=== PATIENT | female | born 1965 | race Caucasian/White ===

== ENCOUNTER 2016-10-09 15:21 | Inpatient (IN) | payer BC, OTHER ==
[~2016-10-09] VITALS: Ht 172.7 cm; Wt 93.8 kg
[2016-10-09] VITALS (7 sets, daily range): BP systolic 82–131; BP diastolic 51–73
[~2016-10-09 15:21] MED LIST: AMIODARONE HCL200 MG PO; ANUSOL1 SUPP PR; ASCORBIC ACID100 MG PO; BUMETANIDE1 MG PO; BUMETANIDE2 MG PO; BUMEX1 MG PO; BUMEX2 MG PO; C COMPLEX500 MG PO; COLACE100 MG PO; CORDARONE200 MG GT; CORDARONE200 MG PO; COREG3.125 M1 PO; CORGARD40 MG PO; COUMADIN7.5 MG PO; Cardizem CD,Cartia X PO; Coreg PO; DOCUSATE SODIU100 MG PO; ENDOCET 5-3251 EACH PO; Ecotrin PO; FEOSOL325 MG PO; FERROUS SULFAT325 MG PO; GLIPIZIDE5 MG PO; GLUCOPHAGE1000 MG PO; GLUCOTROL5 MG PO; GLYBURIDE5 MG PO; HEPARIN SO5000 UNITS SC; HYDROXYZINE HCL10 MG PO; KETOCONAZOLE60 GM TP; LANTUS 10100 UNITS/ IM/SC; LANTUS 3 M100 UNITS1 SC; LEVOTHYROXINE125 MCG PO; LIPITOR20 MG PO; METOLAZONE2.5 MG PO; MIDODRINE HCL5 MG PO; MORPHINE CON20 MG/M1 PO; MULTI VITAMIN1 EACH PO; Micro-K,K-Tab,K-Dur, PO; NITROSTAT0.4 MG SL; NOVOLOG 10100 UNITS/ SC; NOVOLOG PE100 UNITS/ SC; OXYCONTIN10 MG PO; PLAVIX75 MG PO; PREVACID30 MG PO; PROTONIX40 MG PO; RANEXA1000 MG PO; RENA-VITE RX T1 EACH PO; RENVELA800 MG GT; ROXICODONE5 MG PO; SENOKOT S,PE1 TABLET PO; SYNTHROID112 MCG PO; SYNTHROID150 MCG GT; SYNTHROID50 MCG PO; ULTRAM50 MG PO; VITAMIN B-12250 MCG PO; VITAMIN B12-FO1 EACH PO; VITAMIN D-32000 UNI1 PO; VITAMIN D2000 UNIT PO; VITAMIN D31000 UNIT PO; XARELTO15 MG PO; Xarelto PO; ZANTAC150 MG GT; ZOLOFT25 MG PO; [UNRECOGNIZED DRUG - REMARK]
[2016-10-09 16:24] LABS: CREATININE 8.2 mg/dL (0.6-1.3); POTASSIUM 4.8 mEq/L (3.7-5.4)
[2016-10-09 16:36] LABS: BASE EXCESS -15.1 mEq/L (-3 to +3); BICARBONATE 10.7 mEq/L (22-26); CARBOXY HGB 1.6 % (0-5); METHEMOGLOBIN 0.9 % (0-1.5); PCO2 25 mm Hg (35-45); PO2 83 mm Hg (80-100)
[2016-10-09 16:37] LABS: COMMENTS - BLOOD GASES A+C+; FI02 21 %; SITE RR; pH 7.24 (7.35-7.45)
[2016-10-09 16:40] LABS: HEMATOCRIT 34.7 % (36.0-46.0); MCH 32.6 PG (29.0-34.0); MCHC 32.6 G/DL (30.0-36.0); MEAN PLAT.VOLUME 12.4 uM^3 (9.5-12.4); PLATELET COUNT 127 K/uL (156-360); RBC DIS.WIDTH-SD 49.8 % (39-53); RED BLOOD COUNT 3.47 M/uL (3.80-5.20); WHITE BLOOD COUNT 13.6 K/uL (4.1-10.2)
[2016-10-09 16:44] LABS: EOSINOPHIL (%) 0 % (0-5); IMMATURE GRANULOCYTE COUNT 1.4 K/uL; LYMPHOCYTE COUNT 0.5 K/uL (1.0-2.8); MONOCYTE COUNT 0.3 K/uL (0-0.8); NEUTROPHIL (%) 93.5 % (45-76); NEUTROPHIL COUNT 12.7 K/uL (1.8-6.4)
[2016-10-09 16:48] LABS: GLUCOSE 75 mg/dL (70-99)
[2016-10-09 16:49] LABS: ANION GAP 34 MEQ/L (2-14)
[2016-10-09 16:50] LABS: TOTAL BILIRUBIN 2.3 mg/dL (0.0-1.0)
[2016-10-09 16:52] LABS: ALKALINE PHOSPHATASE 74 IU/L (3-129); GFR ESTIMATE (CALCULATED) 5 mL/min/
[2016-10-09 16:55] LABS: CREATINE KINASE 104 IU/L (1-294); LIPASE 24 U/L (1.0-51.0)
[2016-10-09 17:00] LABS: INTERNAL CONTROL VALID? YES; MONOSPOT (MONONUCLEOSIS SEROL) NEGATIVE; UREA NITROGEN (BUN) 109 mg/dL (9-23)
[2016-10-09 17:01] LABS: TROP-I INTERPRETATION INDETERMINATE; TROPONIN-I 0.38 ng/mL (0.0-0.30)
[2016-10-09 17:02] LABS: CK-MB 3.6 ng/mL (0.0-4.9)
[2016-10-09 17:04] LABS: CHLORIDE 87 MEQ/L (99-109); POTASSIUM 5.1 MEQ/L (3.7-5.4); SODIUM 131 MEQ/L (136-147)
[2016-10-09 17:07] LABS: TOTAL CK 104 IU/L (1-294)
[2016-10-09] MEDS ORDERED: TRADJENTA5 MG PO (17:26)
[2016-10-09] MEDS ORDERED: CRESTOR20 MG GT (17:26)
[2016-10-09] MEDS ORDERED: TRAMADOL HCL50 MG PO (17:27)
[2016-10-09] MEDS ORDERED: MIDODRINE HCL5 MG GT (17:27)
[2016-10-09] MEDS ORDERED: ZOFRAN4 MG PO (17:29)
[2016-10-09] MEDS ORDERED: LIDOPRIL 2.5%-1 EACH TP (17:29)
[2016-10-09 17:34] LABS: INFLUENZA A VIRAL ANTIGEN POSITIVE; INFLUENZA B VIRAL ANTIGEN NEGATIVE
[2016-10-09 19:59] LABS: CARBOXY HGB 1.7 % (0-5); METHEMOGLOBIN 1.1 % (0-1.5); PCO2 28 mm Hg (35-45); PO2 95 mm Hg (80-100); pH < 6.91 (7.35-7.45)
[2016-10-09 20:00] LABS: DEVICE NC; O2 FLOW 5 L/MIN; SITE RB; TOTAL RESP RATE 12 resp/min
[2016-10-09 20:34] LABS: TROP-I INTERPRETATION INDETERMINATE; TROPONIN-I 0.54 ng/mL (0.0-0.30)
[2016-10-09 20:40] LABS: CHLORIDE 96 mEq/L (99-109); POTASSIUM 4.9 mEq/L (3.7-5.4); SODIUM 131 mEq/L (136-147)
[2016-10-09 20:41] LABS: MAGNESIUM 2.4 mg/dL (1.3-2.7)
[2016-10-09 20:44] LABS: ANION GAP 32 MEQ/L (2-14)
[2016-10-09 20:45] LABS: TOTAL BILIRUBIN 2.2 mg/dL (0.0-1.0)
[2016-10-09 20:46] LABS: ALKALINE PHOSPHATASE 65 IU/L (3-129)
[2016-10-09 20:47] LABS: GFR ESTIMATE (CALCULATED) 6 mL/min/
[2016-10-09 20:48] LABS: GLUCOSE 162 mg/dL (70-99); UREA NITROGEN (BUN) 100 mg/dL (9-23)
[2016-10-09 21:09] LABS: HEMATOLOGY COMMENT 1 SMEAR COMPATIBLE
[2016-10-09 21:10] LABS: HEMATOCRIT 42.8 % (36.0-46.0); MCH 31.1 PG (29.0-34.0); MCHC 29.7 G/DL (30.0-36.0); PLATELET COUNT 97 K/uL (156-360); RBC DIS.WIDTH-CV 14.6 % (11.8-14.6); RBC DIS.WIDTH-SD 55.9 % (39-53); RED BLOOD COUNT 4.09 M/uL (3.80-5.20); WHITE BLOOD COUNT 14.9 K/uL (4.1-10.2)
[2016-10-09 22:01] LABS: BASE EXCESS -9.1 mEq/L (-3 to +3); BICARBONATE 16.9 mEq/L (22-26); CARBOXY HGB 1.2 % (0-5); METHEMOGLOBIN 1.3 % (0-1.5); PCO2 36 mm Hg (35-45); PO2 489 mm Hg (80-100); pH 7.28 (7.35-7.45)
[2016-10-09 22:02] LABS: DEVICE PB840; FI02 100 %; MECHANICAL RATE 14 resp/min; MODE SIMV; PEEP 5 CM/H20; PRES. SUPPORT 10 CM/H2O; SITE A-LINE; TIDAL VOLUME 400 ML; TOTAL RESP RATE 24 resp/min
[2016-10-09 22:12] LABS: METH RESISTANT S AUREUS PCR NEGATIVE (NEGATIVE)
[2016-10-09 22:15] LABS: PROBE CHECK PASS; SPECIMEN PROCESSING CONTROL PASS
[2016-10-09 22:17] LABS: MCV 104.6 FL (83-99)
[2016-10-09 23:04] LABS: BASE EXCESS -15.5 mEq/L (-3 to +3); METHEMOGLOBIN 1.7 % (0-1.5)
[2016-10-09 23:05] LABS: BICARBONATE 13.3 mEq/L (22-26); DEVICE PB840; FI02 100 %; MECHANICAL RATE 20 resp/min; MODE AC; PCO2 42 mm Hg (35-45); PEEP 5 CM/H20; PO2 302 mm Hg (80-100); TIDAL VOLUME 450 ML; TOTAL RESP RATE 20 resp/min; pH 7.11 (7.35-7.45)
[2016-10-09 23:06] LABS: SITE A-LINE
[2016-10-09 23:53] LABS: HEMATOCRIT 33.7 % (36.0-46.0); MCH 32.6 PG (29.0-34.0); MCHC 32.3 G/DL (30.0-36.0); MCV 100.9 FL (83-99); MEAN PLAT.VOLUME 11.4 uM^3 (9.5-12.4); PLATELET COUNT 118 K/uL (156-360); RBC DIS.WIDTH-SD 50.3 % (39-53); RED BLOOD COUNT 3.34 M/uL (3.80-5.20); WHITE BLOOD COUNT 12.3 K/uL (4.1-10.2)
[2016-10-10] VITALS (8 sets, daily range): BP systolic 96–150; BP diastolic 54–80
[2016-10-10 00:01] LABS: CHLORIDE 91 mEq/L (99-109)
[2016-10-10 00:03] LABS: GLUCOSE 124 mg/dL (70-99)
[2016-10-10 00:04] LABS: ANION GAP 42 MEQ/L (2-14); PROTHROMBIN TIME 32.9 (9.2-11.2)
[2016-10-10 00:07] LABS: GFR ESTIMATE (CALCULATED) 6 mL/min/
[2016-10-10 00:30] LABS: MAGNESIUM 1.9 mg/dL (1.3-2.7); SODIUM 149 mEq/L (136-147)
[2016-10-10 00:34] LABS: INTER. NORMALIZED RATIO 3.1
[2016-10-10 00:35] LABS: UREA NITROGEN (BUN) 104 mg/dL (9-23)
[2016-10-10 02:15] LABS: BASE EXCESS -7.9 mEq/L (-3 to +3); BICARBONATE 17.6 mEq/L (22-26); CARBOXY HGB 2.3 % (0-5); COMMENTS - BLOOD GASES C+; DEVICE PB840; FI02 80 %; MECHANICAL RATE 24 resp/min; METHEMOGLOBIN 1.3 % (0-1.5); MODE ACVC; PCO2 35 mm Hg (35-45); PEEP 5 CM/H20; PO2 240 mm Hg (80-100); TIDAL VOLUME 450 ML; TOTAL RESP RATE 24 resp/min; pH 7.31 (7.35-7.45)
[2016-10-10 02:16] LABS: SITE A-LINE
[2016-10-10 05:22] LABS: BASE EXCESS -4.9 mEq/L (-3 to +3); BICARBONATE 19.5 mEq/L (22-26); CARBOXY HGB 1.2 % (0-5); METHEMOGLOBIN 1.6 % (0-1.5); PCO2 33 mm Hg (35-45); pH 7.38 (7.35-7.45)
[2016-10-10 05:23] LABS: PEEP 5 CM/H20; PO2 174 mm Hg (80-100); TIDAL VOLUME 450 ML
[2016-10-10 05:24] LABS: COMMENTS - BLOOD GASES C+; DEVICE PB840; FI02 60 %; MECHANICAL RATE 24 resp/min; MODE ACVC; SITE A-LINE; TOTAL RESP RATE 28 resp/min
[2016-10-10 05:29] LABS: HEMATOCRIT 33.9 % (36.0-46.0); MCH 32.7 PG (29.0-34.0); MCV 99.1 FL (83-99); MEAN PLAT.VOLUME 11.7 uM^3 (9.5-12.4); PLATELET COUNT 121 K/uL (156-360); RBC DIS.WIDTH-SD 48.4 % (39-53); RED BLOOD COUNT 3.42 M/uL (3.80-5.20); WHITE BLOOD COUNT 12.6 K/uL (4.1-10.2)
[2016-10-10 05:35] LABS: INTER. NORMALIZED RATIO 2.7; PROTHROMBIN TIME 28.3 (9.2-11.2)
[2016-10-10 05:43] LABS: CHLORIDE 91 mEq/L (99-109); SODIUM 149 mEq/L (136-147)
[2016-10-10 05:46] LABS: GLUCOSE 111 mg/dL (70-99)
[2016-10-10 05:47] LABS: ANION GAP 42 MEQ/L (2-14)
[2016-10-10 05:49] LABS: ALKALINE PHOSPHATASE 79 IU/L (3-129); TOTAL BILIRUBIN 2.9 mg/dL (0.0-1.0)
[2016-10-10 05:49] LABS: TROP-I INTERPRETATION POSITIVE; TROPONIN-I 9.58 ng/mL (0.0-0.30)
[2016-10-10 05:50] LABS: GFR ESTIMATE (CALCULATED) 6 mL/min/
[2016-10-10 05:52] LABS: UREA NITROGEN (BUN) 105 mg/dL (9-23)
[2016-10-10 07:33] LABS: POINT-OF-CARE METER ID UU13113702
[2016-10-10 08:01] LABS: ADD MIUA? YES; BILIRUBIN SMALL; BLOOD LARGE; GLUCOSE (STRIP) NEGATIVE; KETONES TRACE; LEUKOCYTES MODERATE; NITRITE NEGATIVE; PROTEIN (STRIP) >=300; SPECIFIC GRAVITY 1.031 (1.000-1.030)
[2016-10-10 08:02] LABS: COLOR AMBER ((YELLOW))
[2016-10-10 08:35] LABS: BACTERIA 2+; CASTS NONE SEEN /LPF; CRYSTALS NONE SEEN; EPITHELIAL CELLS NONE SEEN; MUCUS NONE SEEN; UCUL ADDED? NO; WHITE BLOOD CELLS RARE /HPF (0-5)
[2016-10-10 09:13] LABS: BASE EXCESS -0.8 mEq/L (-3 to +3); CARBOXY HGB 1.6 % (0-5); METHEMOGLOBIN 1.8 % (0-1.5); pH 7.38 (7.35-7.45)
[2016-10-10 09:15] LABS: BICARBONATE 24.3 mEq/L (22-26); COMMENTS - BLOOD GASES VENOUS; DEVICE VENT; FI02 100 %; MECHANICAL RATE 24 resp/min; MODE AC; PCO2 41 mm Hg (35-45); PEEP 8 CM/H20; PO2 56 mm Hg (80-100); SITE CENTRAL LINE; TIDAL VOLUME 450 ML; TOTAL RESP RATE 25 resp/min
[2016-10-10 10:15] LABS: HBSG INDEX 0.18
[2016-10-10 10:16] LABS: HPCA INDEX 0.09
[2016-10-10 10:17] LABS: ANTI-HEPATITIS A VIRUS (IGM) Nonreactive; HAV INDEX 0.12
[2016-10-10 10:18] LABS: ANTI-HEPATITIS B CORE (IGM) Nonreactive; HBC IgM INDEX 0.06
[2016-10-10 12:25] LABS: TROP-I INTERPRETATION POSITIVE
[2016-10-10 12:30] LABS: TROPONIN-I 15.99 ng/mL (0.0-0.30)
[2016-10-10 12:39] LABS: ANION GAP 37 MEQ/L (2-14); CHLORIDE 90 MEQ/L (99-109); GFR ESTIMATE (CALCULATED) 7 mL/min/; GLUCOSE 155 mg/dL (70-99); POTASSIUM 3.4 MEQ/L (3.7-5.4); SAMPLE HEMOLYSIS CHECK 0; SAMPLE ICTERIC CHECK 1; SAMPLE LIPEMIA CHECK 0; SODIUM 149 MEQ/L (136-147); UREA NITROGEN (BUN) 99 mg/dL (9-23)
[2016-10-10 18:47] LABS: TROP-I INTERPRETATION POSITIVE
[2016-10-10 18:51] LABS: CHLORIDE 93 MEQ/L (99-109); GFR ESTIMATE (CALCULATED) 11 mL/min/; GLUCOSE 208 mg/dL (70-99); MAGNESIUM 2.1 mg/dl (1.3-2.7); POTASSIUM 3.7 MEQ/L (3.7-5.4); SODIUM 144 MEQ/L (136-147); TOTAL BILIRUBIN 3.4 MG/DL (0.0-1.0); UREA NITROGEN (BUN) 75 mg/dL (9-23)
[2016-10-10 18:53] LABS: TROPONIN-I 15.23 ng/mL (0.0-0.30)
[2016-10-10 18:59] LABS: ALKALINE PHOSPHATASE 92 IU/L (3-129); ANION GAP 26 MEQ/L (2-14); SAMPLE HEMOLYSIS CHECK 0; SAMPLE ICTERIC CHECK 1; SAMPLE LIPEMIA CHECK 0
[2016-10-10 22:08] LABS: EOSINOPHIL (%) 0 % (0-5); HEMATOLOGY COMMENT 1 SMEAR COMPATIBLE; IMMATURE GRANULOCYTE (%) 2.6 % (0.0-0.7); IMMATURE GRANULOCYTE COUNT 0.2 K/uL; LYMPHOCYTE COUNT 0.4 K/uL (1.0-2.8); MCH 32.3 PG (29.0-34.0); MCHC 34.1 G/DL (30.0-36.0); MEAN PLAT.VOLUME 11.9 uM^3 (9.5-12.4); MONOCYTE COUNT 0.1 K/uL (0-0.8); NEUTROPHIL (%) 91.1 % (45-76); NEUTROPHIL COUNT 6.7 K/uL (1.8-6.4); NRBC (%) 1.4 /100 WBC (0-0); PLATELET COUNT 86 K/uL (156-360); RBC DIS.WIDTH-SD 48.2 % (39-53); RED BLOOD COUNT 3.37 M/uL (3.80-5.20); USER ID LYM
[2016-10-10 22:15] LABS: WHITE BLOOD COUNT 7.4 K/uL (4.1-10.2)
[2016-10-11] VITALS: BP 114/61
[2016-10-11 00:33] LABS: POINT-OF-CARE METER ID UU14174217
[2016-10-11 02:00] LABS: HEMATOCRIT 31.2 % (36.0-46.0); MCH 31.8 PG (29.0-34.0); MCHC 33.3 G/DL (30.0-36.0); MCV 95.4 FL (83-99); MEAN PLAT.VOLUME 11.6 uM^3 (9.5-12.4); NRBC (%) 1.7 /100 WBC (0-0); PLATELET COUNT 91 K/uL (156-360); RBC DIS.WIDTH-CV 13.9 % (11.8-14.6); RBC DIS.WIDTH-SD 48.1 % (39-53); RED BLOOD COUNT 3.27 M/uL (3.80-5.20); WHITE BLOOD COUNT 6.2 K/uL (4.1-10.2)
[2016-10-11 02:09] LABS: EOSINOPHIL (%) 0 % (0-5); IMMATURE GRANULOCYTE (%) 1.1 % (0.0-0.7); IMMATURE GRANULOCYTE COUNT 0.1 K/uL; LYMPHOCYTE COUNT 0.4 K/uL (1.0-2.8); MONOCYTE (%) 0.5 % (3-12); NEUTROPHIL COUNT 5.6 K/uL (1.8-6.4)
[2016-10-11 02:29] LABS: DIGOXIN 3.1 ng/mL (0.8-2.0)
[2016-10-11 03:09] LABS: CHLORIDE 94 MEQ/L (99-109); GFR ESTIMATE (CALCULATED) 14 mL/min/; GLUCOSE 289 mg/dL (70-99); MAGNESIUM 2.1 mg/dl (1.3-2.7); SAMPLE HEMOLYSIS CHECK 0; SAMPLE ICTERIC CHECK 1; SAMPLE LIPEMIA CHECK 0; SODIUM 140 MEQ/L (136-147); UREA NITROGEN (BUN) 55 mg/dL (9-23)
[2016-10-11 03:10] LABS: ANION GAP 20 MEQ/L (2-14)
[2016-10-11 05:01] LABS: BASE EXCESS 4.9 mEq/L (-3 to +3); BICARBONATE 27.4 mEq/L (22-26); CARBOXY HGB 1.3 % (0-5); METHEMOGLOBIN 1.4 % (0-1.5)
[2016-10-11 05:02] LABS: COMMENTS - BLOOD GASES C+; DEVICE VENTILATOR; FI02 40 %; MECHANICAL RATE 24 resp/min; MODE AC; PCO2 32 mm Hg (35-45); PEEP 5 CM/H20; PO2 117 mm Hg (80-100); SITE A-LINE; TIDAL VOLUME 450 ML; TOTAL RESP RATE 24 resp/min; pH 7.54 (7.35-7.45)
[2016-10-11 05:39] LABS: TROP-I INTERPRETATION POSITIVE
[2016-10-11 05:53] LABS: INTER. NORMALIZED RATIO 2.9
[2016-10-11 06:00] VITALS: BP 110/67
[2016-10-11 06:08] LABS: POINT-OF-CARE METER ID UU14174217
[2016-10-11 06:40] LABS: ALKALINE PHOSPHATASE 86 IU/L (3-129); ANION GAP 18 MEQ/L (2-14); CHLORIDE 94 MEQ/L (99-109); GLUCOSE 277 mg/dL (70-99); MAGNESIUM 2.2 mg/dl (1.3-2.7); POTASSIUM 3.8 MEQ/L (3.7-5.4); SAMPLE HEMOLYSIS CHECK 0; SAMPLE ICTERIC CHECK 1; SAMPLE LIPEMIA CHECK 0; SODIUM 138 MEQ/L (136-147); TOTAL BILIRUBIN 3.9 MG/DL (0.0-1.0); UREA NITROGEN (BUN) 47 mg/dL (9-23)
[2016-10-11 06:44] LABS: GFR ESTIMATE (CALCULATED) 17 mL/min/
[2016-10-11 09:00] VITALS: BP 112/62
[2016-10-11 09:04] LABS: HEMATOCRIT 31.3 % (36.0-46.0); MCH 32.8 PG (29.0-34.0); MCHC 33.9 G/DL (30.0-36.0); MCV 96.9 FL (83-99); PLATELET COUNT 88 K/uL (156-360); RBC DIS.WIDTH-CV 14.1 % (11.8-14.6); RBC DIS.WIDTH-SD 49.9 % (39-53); RED BLOOD COUNT 3.23 M/uL (3.80-5.20); WHITE BLOOD COUNT 7.5 K/uL (4.1-10.2)
[2016-10-11 11:49] LABS: POINT-OF-CARE METER ID UU14174217
[2016-10-11 13:18] LABS: ANION GAP 13 MEQ/L (2-14); CHLORIDE 100 MEQ/L (99-109); GFR ESTIMATE (CALCULATED) 25 mL/min/; GLUCOSE 231 mg/dL (70-99); MAGNESIUM 2.2 mg/dl (1.3-2.7); POTASSIUM 4.1 MEQ/L (3.7-5.4); SAMPLE HEMOLYSIS CHECK 0; SAMPLE ICTERIC CHECK 1; SAMPLE LIPEMIA CHECK 0; SODIUM 137 MEQ/L (136-147); UREA NITROGEN (BUN) 35 mg/dL (9-23)
[2016-10-11 13:41] LABS: TROP-I INTERPRETATION POSITIVE
[2016-10-11 13:53] LABS: TROPONIN-I 7.14 ng/mL (0.0-0.30)
[2016-10-11 18:32] LABS: TROP-I INTERPRETATION POSITIVE
[2016-10-11 18:36] LABS: TROPONIN-I 4.04 ng/mL (0.0-0.30)
[2016-10-11 18:51] LABS: ALKALINE PHOSPHATASE 85 IU/L (3-129); ANION GAP 17 MEQ/L (2-14); CHLORIDE 96 MEQ/L (99-109); GFR ESTIMATE (CALCULATED) 26 mL/min/; GLUCOSE 227 mg/dL (70-99); MAGNESIUM 2.1 mg/dl (1.3-2.7); POTASSIUM 4.1 MEQ/L (3.7-5.4); SAMPLE HEMOLYSIS CHECK 0; SAMPLE ICTERIC CHECK 1; SAMPLE LIPEMIA CHECK 0; SODIUM 136 MEQ/L (136-147); TOTAL BILIRUBIN 3.8 MG/DL (0.0-1.0); UREA NITROGEN (BUN) 31 mg/dL (9-23)
[2016-10-11 21:56] LABS: BASE EXCESS 0.5 mEq/L (-3 to +3); BICARBONATE 24.5 mEq/L (22-26); CARBOXY HGB 1.4 % (0-5); METHEMOGLOBIN 1.7 % (0-1.5); PCO2 36 mm Hg (35-45); PO2 96 mm Hg (80-100)
[2016-10-11 21:57] LABS: DEVICE VENT; FI02 30 %; MECHANICAL RATE 18 resp/min; MODE AC; PEEP 5 CM/H20; SITE ALINE; TIDAL VOLUME 450 ML; pH 7.44 (7.35-7.45)
[2016-10-12 00:37] LABS: POINT-OF-CARE METER ID UU14162636
[2016-10-12 00:53] LABS: MAGNESIUM 2.1 mg/dL (1.3-2.7); POTASSIUM 4.4 mEq/L (3.7-5.4); SODIUM 136 mEq/L (136-147)
[2016-10-12 00:55] LABS: GLUCOSE 194 mg/dL (70-99)
[2016-10-12 00:56] LABS: ANION GAP 14 MEQ/L (2-14)
[2016-10-12 00:59] LABS: GFR ESTIMATE (CALCULATED) 31 mL/min/; UREA NITROGEN (BUN) 28 mg/dL (9-23)
[2016-10-12 01:13] LABS: CHLORIDE 101 mEq/L (99-109)
[2016-10-12 05:00] VITALS: BP 112/62
[2016-10-12 06:50] LABS: HEMATOCRIT 32.9 % (36.0-46.0); MCH 32.2 PG (29.0-34.0); MCHC 32.8 G/DL (30.0-36.0); MCV 98.2 FL (83-99); MEAN PLAT.VOLUME 12.4 uM^3 (9.5-12.4); PLATELET COUNT 74 K/uL (156-360); RBC DIS.WIDTH-CV 14.4 % (11.8-14.6); RBC DIS.WIDTH-SD 51.9 % (39-53); RED BLOOD COUNT 3.35 M/uL (3.80-5.20); WHITE BLOOD COUNT 8.6 K/uL (4.1-10.2)
[2016-10-12 07:03] LABS: PROTHROMBIN TIME 20.8 (9.2-11.2); PTT 83.7 (25-32)
[2016-10-12 07:15] LABS: TROP-I INTERPRETATION POSITIVE
[2016-10-12 07:25] LABS: ALKALINE PHOSPHATASE 97 IU/L (3-129); ANION GAP 14 MEQ/L (2-14); CHLORIDE 102 MEQ/L (99-109); GFR ESTIMATE (CALCULATED) 36 mL/min/; GLUCOSE 186 mg/dL (70-99); MAGNESIUM 2.3 mg/dl (1.3-2.7); POTASSIUM 4.6 MEQ/L (3.7-5.4); SAMPLE HEMOLYSIS CHECK 0; SAMPLE ICTERIC CHECK 1; SAMPLE LIPEMIA CHECK 0; SODIUM 139 MEQ/L (136-147); TOTAL BILIRUBIN 3.3 MG/DL (0.0-1.0); TROPONIN-I 3.38 ng/mL (0.0-0.30); UREA NITROGEN (BUN) 27 mg/dL (9-23)
[2016-10-12 12:01] LABS: POINT-OF-CARE METER ID UU13113731
[2016-10-12 13:21] LABS: ANION GAP 18 MEQ/L (2-14); CHLORIDE 99 MEQ/L (99-109); GFR ESTIMATE (CALCULATED) 42 mL/min/; GLUCOSE 177 mg/dL (70-99); MAGNESIUM 2.3 mg/dl (1.3-2.7); POTASSIUM 4.6 MEQ/L (3.7-5.4); SAMPLE HEMOLYSIS CHECK 0; SAMPLE ICTERIC CHECK 0; SAMPLE LIPEMIA CHECK 0; SODIUM 139 MEQ/L (136-147); UREA NITROGEN (BUN) 25 mg/dL (9-23)
[2016-10-12 17:26] LABS: POINT-OF-CARE METER ID UU13113731
[2016-10-12 19:54] LABS: HEMATOLOGY COMMENT 1 SMEAR COMPATIBLE
[2016-10-12 19:55] LABS: HEMATOCRIT 33.2 % (36.0-46.0); MCH 32.7 PG (29.0-34.0); MCHC 33.1 G/DL (30.0-36.0); MCV 98.8 FL (83-99); MEAN PLAT.VOLUME 13.1 uM^3 (9.5-12.4); RBC DIS.WIDTH-CV 14.5 % (11.8-14.6); RBC DIS.WIDTH-SD 52.1 % (39-53); RED BLOOD COUNT 3.36 M/uL (3.80-5.20); WHITE BLOOD COUNT 10.7 K/uL (4.1-10.2)
[2016-10-12 20:02] LABS: PLATELET COUNT 46 K/uL (156-360)
[2016-10-12 21:12] LABS: ALKALINE PHOSPHATASE 103 IU/L (3-129); ANION GAP 13 MEQ/L (2-14); CHLORIDE 103 MEQ/L (99-109); GFR ESTIMATE (CALCULATED) 46 mL/min/; GLUCOSE 175 mg/dL (70-99); MAGNESIUM 2.4 mg/dl (1.3-2.7); POTASSIUM 4.6 MEQ/L (3.7-5.4); SAMPLE HEMOLYSIS CHECK 0; SAMPLE ICTERIC CHECK 0; SAMPLE LIPEMIA CHECK 0; SODIUM 137 MEQ/L (136-147); UREA NITROGEN (BUN) 26 mg/dL (9-23)
[2016-10-12 23:00] VITALS: BP 90/55
[2016-10-12 23:18] LABS: POINT-OF-CARE METER ID UU13113731
[2016-10-13 01:01] LABS: CHLORIDE 104 mEq/L (99-109); POTASSIUM 4.7 mEq/L (3.7-5.4); SODIUM 137 mEq/L (136-147)
[2016-10-13 01:02] LABS: MAGNESIUM 2.2 mg/dL (1.3-2.7)
[2016-10-13 01:19] LABS: GLUCOSE 175 mg/dL (70-99)
[2016-10-13 01:21] LABS: ANION GAP 15 MEQ/L (2-14)
[2016-10-13 01:23] LABS: GFR ESTIMATE (CALCULATED) 50 mL/min/
[2016-10-13 01:24] LABS: UREA NITROGEN (BUN) 24 mg/dL (9-23)
[2016-10-13 05:15] LABS: POINT-OF-CARE METER ID UU14162636
[2016-10-13 06:38] LABS: INTER. NORMALIZED RATIO 1.8; PROTHROMBIN TIME 18.7 (9.2-11.2)
[2016-10-13 07:02] LABS: ALKALINE PHOSPHATASE 106 IU/L (3-129); ANION GAP 15 MEQ/L (2-14); CHLORIDE 103 MEQ/L (99-109); GFR ESTIMATE (CALCULATED) 55 mL/min/; GLUCOSE 176 mg/dL (70-99); HEMATOCRIT 35.1 % (36.0-46.0); MAGNESIUM 2.3 mg/dl (1.3-2.7); MCH 32.1 PG (29.0-34.0); MCHC 32.2 G/DL (30.0-36.0); MCV 99.7 FL (83-99); POTASSIUM 4.5 MEQ/L (3.7-5.4); RBC DIS.WIDTH-CV 14.8 % (11.8-14.6); RBC DIS.WIDTH-SD 53.5 % (39-53); RED BLOOD COUNT 3.52 M/uL (3.80-5.20); SAMPLE HEMOLYSIS CHECK 0; SAMPLE ICTERIC CHECK 0; SAMPLE LIPEMIA CHECK 0; SODIUM 138 MEQ/L (136-147); TOTAL BILIRUBIN 2.9 MG/DL (0.0-1.0); UREA NITROGEN (BUN) 25 mg/dL (9-23)
[2016-10-13 07:03] LABS: WHITE BLOOD COUNT 16.2 K/uL (4.1-10.2)
[2016-10-13 07:45] LABS: PLATELET COUNT 30 K/uL (156-360)
[2016-10-13 12:36] LABS: ANION GAP 14 MEQ/L (2-14); CHLORIDE 102 MEQ/L (99-109); GFR ESTIMATE (CALCULATED) > 59 mL/min/; GLUCOSE 177 mg/dL (70-99); MAGNESIUM 2.4 mg/dl (1.3-2.7); POTASSIUM 4.7 MEQ/L (3.7-5.4); SAMPLE HEMOLYSIS CHECK 0; SAMPLE ICTERIC CHECK 0; SAMPLE LIPEMIA CHECK 0; SODIUM 136 MEQ/L (136-147); UREA NITROGEN (BUN) 24 mg/dL (9-23)
[2016-10-13 13:11] LABS: BASE EXCESS -4.4 mEq/L (-3 to +3); CARBOXY HGB 1.9 % (0-5); METHEMOGLOBIN 1.4 % (0-1.5); PCO2 39 mm Hg (35-45); PO2 93 mm Hg (80-100)
[2016-10-13 13:12] LABS: pH 7.34 (7.35-7.45)
[2016-10-13 13:13] LABS: COMMENTS - BLOOD GASES C+; DEVICE 840; FI02 30 %; MECHANICAL RATE 18 resp/min; MODE A/C; PEEP 5 CM/H20; SITE ALINE; TIDAL VOLUME 450 ML; TOTAL RESP RATE 18 resp/min
[2016-10-13 14:00] VITALS: BP 90/55
[2016-10-13 16:00] VITALS: BP 55/30
[2016-10-13 18:02] LABS: POINT-OF-CARE METER ID UU13113731
[2016-10-13 19:00] VITALS: BP 93/42
[2016-10-13 19:10] LABS: CHLORIDE 103 MEQ/L (99-109); GFR ESTIMATE (CALCULATED) > 59 mL/min/; GLUCOSE 166 mg/dL (70-99); MAGNESIUM 2.3 mg/dl (1.3-2.7); POTASSIUM 4.5 MEQ/L (3.7-5.4); SODIUM 137 MEQ/L (136-147); TOTAL BILIRUBIN 2.6 MG/DL (0.0-1.0); UREA NITROGEN (BUN) 25 mg/dL (9-23)
[2016-10-13 19:18] LABS: ALKALINE PHOSPHATASE 101 IU/L (3-129); ANION GAP 15 MEQ/L (2-14); SAMPLE HEMOLYSIS CHECK 0; SAMPLE ICTERIC CHECK 0; SAMPLE LIPEMIA CHECK 0
[2016-10-13 19:47] LABS: HEMATOCRIT 32.6 % (36.0-46.0); MCHC 32.8 G/DL (30.0-36.0); MCV 100.6 FL (83-99); PLATELET COUNT 22 K/uL (156-360); RBC DIS.WIDTH-CV 14.8 % (11.8-14.6); RED BLOOD COUNT 3.24 M/uL (3.80-5.20); WHITE BLOOD COUNT 20.3 K/uL (4.1-10.2)
[2016-10-13 20:50] LABS: BICARBONATE 21.2 mEq/L (22-26); CARBOXY HGB 1.9 % (0-5); COMMENTS - BLOOD GASES C+; DEVICE VENT; FI02 30 %; METHEMOGLOBIN 1.7 % (0-1.5); MODE SPONT; PCO2 43 mm Hg (35-45); PEEP 5 CM/H20; PO2 103 mm Hg (80-100); PRES. SUPPORT 15 CM/H2O; SITE ALINE; TOTAL RESP RATE 8 resp/min
[2016-10-14 00:22] LABS: POINT-OF-CARE METER ID UU13113731
[2016-10-14 01:34] LABS: CHLORIDE 104 mEq/L (99-109); POTASSIUM 4.8 mEq/L (3.7-5.4); SODIUM 138 mEq/L (136-147)
[2016-10-14 01:35] LABS: MAGNESIUM 2.2 mg/dL (1.3-2.7)
[2016-10-14 01:36] LABS: GLUCOSE 166 mg/dL (70-99)
[2016-10-14 01:37] LABS: ANION GAP 16 MEQ/L (2-14)
[2016-10-14 01:40] LABS: GFR ESTIMATE (CALCULATED) 55 mL/min/
[2016-10-14 01:41] LABS: UREA NITROGEN (BUN) 23 mg/dL (9-23)
[2016-10-14 01:46] LABS: TROP-I INTERPRETATION POSITIVE
[2016-10-14 01:47] LABS: TROPONIN-I 1.87 ng/mL (0.0-0.30)
[2016-10-14 02:00] VITALS: BP 108/52
[2016-10-14 06:39] LABS: PTT 88.1 (25-32)
[2016-10-14 07:21] LABS: HEMATOCRIT 29.7 % (36.0-46.0); MCH 33.2 PG (29.0-34.0); MCHC 32.7 G/DL (30.0-36.0); MCV 101.7 FL (83-99); RBC DIS.WIDTH-CV 15.1 % (11.8-14.6); RBC DIS.WIDTH-SD 54.8 % (39-53); RED BLOOD COUNT 2.92 M/uL (3.80-5.20)
[2016-10-14 07:23] LABS: PLATELET COUNT 19 K/uL (156-360)
[2016-10-14 08:29] LABS: ALKALINE PHOSPHATASE 94 IU/L (3-129); ANION GAP 15 MEQ/L (2-14); CHLORIDE 104 MEQ/L (99-109); GFR ESTIMATE (CALCULATED) 55 mL/min/; GLUCOSE 196 mg/dL (70-99); MAGNESIUM 2.5 mg/dl (1.3-2.7); POTASSIUM 4.9 MEQ/L (3.7-5.4); SAMPLE HEMOLYSIS CHECK 0; SAMPLE ICTERIC CHECK 0; SAMPLE LIPEMIA CHECK 0; SODIUM 137 MEQ/L (136-147); TOTAL BILIRUBIN 2.5 MG/DL (0.0-1.0); UREA NITROGEN (BUN) 25 mg/dL (9-23)
[2016-10-14 13:24] LABS: ANION GAP 18 MEQ/L (2-14); CHLORIDE 103 MEQ/L (99-109); GFR ESTIMATE (CALCULATED) > 59 mL/min/; GLUCOSE 178 mg/dL (70-99); MAGNESIUM 2.3 mg/dl (1.3-2.7); POTASSIUM 4.5 MEQ/L (3.7-5.4); SAMPLE HEMOLYSIS CHECK 0; SAMPLE ICTERIC CHECK 0; SAMPLE LIPEMIA CHECK 0; SODIUM 137 MEQ/L (136-147); UREA NITROGEN (BUN) 24 mg/dL (9-23)
[2016-10-14 16:17] LABS: Heparin Induced Plt Ab Positive (Negative)
[2016-10-14 18:30] LABS: POINT-OF-CARE METER ID UU14174217
[2016-10-14 19:15] LABS: ALKALINE PHOSPHATASE 79 IU/L (3-129); ANION GAP 14 MEQ/L (2-14); CHLORIDE 105 MEQ/L (99-109); GFR ESTIMATE (CALCULATED) > 59 mL/min/; GLUCOSE 164 mg/dL (70-99); MAGNESIUM 2.4 mg/dl (1.3-2.7); POTASSIUM 4.5 MEQ/L (3.7-5.4); SAMPLE HEMOLYSIS CHECK 0; SAMPLE ICTERIC CHECK 0; SAMPLE LIPEMIA CHECK 0; SODIUM 139 MEQ/L (136-147); UREA NITROGEN (BUN) 22 mg/dL (9-23)
[2016-10-14 20:00] VITALS: BP 89/45
[2016-10-14 20:48] LABS: HEMATOCRIT 27.1 % (36.0-46.0); MCHC 32.1 G/DL (30.0-36.0); MCV 102.7 FL (83-99); RBC DIS.WIDTH-CV 15.3 % (11.8-14.6); RBC DIS.WIDTH-SD 55.5 % (39-53); RED BLOOD COUNT 2.64 M/uL (3.80-5.20); WHITE BLOOD COUNT 13.3 K/uL (4.1-10.2)
[2016-10-14 20:49] LABS: PLATELET COUNT 18 K/uL (156-360)
[2016-10-14 23:49] LABS: POINT-OF-CARE METER ID UU14174217
[2016-10-15 00:54] LABS: CHLORIDE 106 mEq/L (99-109); POTASSIUM 4.5 mEq/L (3.7-5.4); SODIUM 137 mEq/L (136-147)
[2016-10-15 00:55] LABS: MAGNESIUM 2.4 mg/dL (1.3-2.7)
[2016-10-15 01:01] LABS: GLUCOSE 163 mg/dL (70-99)
[2016-10-15 01:02] LABS: ANION GAP 15 MEQ/L (2-14)
[2016-10-15 01:05] LABS: GFR ESTIMATE (CALCULATED) > 59 mL/min/
[2016-10-15 01:06] LABS: UREA NITROGEN (BUN) 21 mg/dL (9-23)
[2016-10-15 05:27] LABS: POINT-OF-CARE METER ID UU14174217
[2016-10-15 06:50] LABS: ALKALINE PHOSPHATASE 79 IU/L (3-129); ANION GAP 17 MEQ/L (2-14); CHLORIDE 103 MEQ/L (99-109); GFR ESTIMATE (CALCULATED) > 59 mL/min/; GLUCOSE 174 mg/dL (70-99); MAGNESIUM 2.5 mg/dl (1.3-2.7); POTASSIUM 4.4 MEQ/L (3.7-5.4); SAMPLE HEMOLYSIS CHECK 0; SAMPLE ICTERIC CHECK 0; SAMPLE LIPEMIA CHECK 0; SODIUM 137 MEQ/L (136-147); TOTAL BILIRUBIN 2.3 MG/DL (0.0-1.0); UREA NITROGEN (BUN) 21 mg/dL (9-23)
[2016-10-15 07:02] LABS: MCH 32.8 PG (29.0-34.0); MCHC 31.4 G/DL (30.0-36.0); MCV 104.5 FL (83-99); RBC DIS.WIDTH-CV 15.7 % (11.8-14.6); RBC DIS.WIDTH-SD 57.7 % (39-53); RED BLOOD COUNT 2.68 M/uL (3.80-5.20); WHITE BLOOD COUNT 16.3 K/uL (4.1-10.2)
[2016-10-15 07:12] LABS: PLATELET COUNT 17 K/uL (156-360)
[2016-10-15 09:15] LABS: INTER. NORMALIZED RATIO 1.9
[2016-10-15 09:16] LABS: PTT 51.8 (25-32)
[2016-10-15 10:15] LABS: FIBRINOGEN 128 MG/DL (160-450)
[2016-10-15 13:02] LABS: ANION GAP 15 MEQ/L (2-14); CHLORIDE 104 MEQ/L (99-109); GFR ESTIMATE (CALCULATED) > 59 mL/min/; GLUCOSE 169 mg/dL (70-99); MAGNESIUM 2.5 mg/dl (1.3-2.7); POTASSIUM 4.5 MEQ/L (3.7-5.4); SAMPLE HEMOLYSIS CHECK 0; SAMPLE ICTERIC CHECK 0; SAMPLE LIPEMIA CHECK 0; SODIUM 137 MEQ/L (136-147); UREA NITROGEN (BUN) 20 mg/dL (9-23)
[2016-10-15 19:07] LABS: HEMATOCRIT 27.9 % (36.0-46.0); MCH 33.2 PG (29.0-34.0); MCHC 31.5 G/DL (30.0-36.0); MCV 105.3 FL (83-99); RBC DIS.WIDTH-CV 16.1 % (11.8-14.6); RBC DIS.WIDTH-SD 59.4 % (39-53); RED BLOOD COUNT 2.65 M/uL (3.80-5.20); WHITE BLOOD COUNT 18.1 K/uL (4.1-10.2)
[2016-10-15 19:20] LABS: ALKALINE PHOSPHATASE 80 IU/L (3-129); ANION GAP 14 MEQ/L (2-14); CHLORIDE 103 MEQ/L (99-109); GFR ESTIMATE (CALCULATED) > 59 mL/min/; GLUCOSE 169 mg/dL (70-99); MAGNESIUM 2.4 mg/dl (1.3-2.7); POTASSIUM 4.4 MEQ/L (3.7-5.4); SAMPLE HEMOLYSIS CHECK 0; SAMPLE ICTERIC CHECK 0; SAMPLE LIPEMIA CHECK 0; SODIUM 135 MEQ/L (136-147); TOTAL BILIRUBIN 2.1 MG/DL (0.0-1.0); UREA NITROGEN (BUN) 19 mg/dL (9-23)
[2016-10-15 19:49] LABS: HEMATOLOGY COMMENT 1 SMEAR COMPATIBLE; PLATELET COUNT 20 K/uL (156-360)
[2016-10-15 20:00] VITALS: BP 138/76
[2016-10-16 00:50] LABS: CHLORIDE 105 mEq/L (99-109); MAGNESIUM 2.2 mg/dL (1.3-2.7); POTASSIUM 4.4 mEq/L (3.7-5.4); SODIUM 136 mEq/L (136-147)
[2016-10-16 00:52] LABS: GLUCOSE 173 mg/dL (70-99)
[2016-10-16 00:53] LABS: ANION GAP 14 MEQ/L (2-14)
[2016-10-16 00:56] LABS: GFR ESTIMATE (CALCULATED) > 59 mL/min/; UREA NITROGEN (BUN) 18 mg/dL (9-23)
[2016-10-16 07:04] LABS: HEMATOCRIT 27.2 % (36.0-46.0); MCH 33.2 PG (29.0-34.0); MCHC 31.6 G/DL (30.0-36.0); RBC DIS.WIDTH-CV 17.1 % (11.8-14.6); RBC DIS.WIDTH-SD 59.7 % (39-53); RED BLOOD COUNT 2.59 M/uL (3.80-5.20)
[2016-10-16 07:16] LABS: PLATELET COUNT 27 K/uL (156-360)
[2016-10-16 08:07] LABS: ALKALINE PHOSPHATASE 78 IU/L (3-129); ANION GAP 16 MEQ/L (2-14); CHLORIDE 100 MEQ/L (99-109); GFR ESTIMATE (CALCULATED) > 59 mL/min/; GLUCOSE 177 mg/dL (70-99); MAGNESIUM 2.5 mg/dl (1.3-2.7); POTASSIUM 4.5 MEQ/L (3.7-5.4); SAMPLE HEMOLYSIS CHECK 0; SAMPLE ICTERIC CHECK 0; SAMPLE LIPEMIA CHECK 0; SODIUM 134 MEQ/L (136-147); TOTAL BILIRUBIN 2.5 MG/DL (0.0-1.0); UREA NITROGEN (BUN) 18 mg/dL (9-23)
[2016-10-16 12:00] VITALS: BP 0/0; BP 92/48
[2016-10-16 14:00] VITALS: BP 92/48
[2016-10-16 14:21] LABS: ANION GAP 13 MEQ/L (2-14); CHLORIDE 104 MEQ/L (99-109); GFR ESTIMATE (CALCULATED) > 59 mL/min/; GLUCOSE 163 mg/dL (70-99); MAGNESIUM 2.5 mg/dl (1.3-2.7); POTASSIUM 4.8 MEQ/L (3.7-5.4); SAMPLE HEMOLYSIS CHECK 0; SAMPLE ICTERIC CHECK 0; SAMPLE LIPEMIA CHECK 0; SODIUM 136 MEQ/L (136-147); UREA NITROGEN (BUN) 18 mg/dL (9-23)
[2016-10-16 18:14] LABS: ALKALINE PHOSPHATASE 72 IU/L (3-129); ANION GAP 13 MEQ/L (2-14); CHLORIDE 103 MEQ/L (99-109); GFR ESTIMATE (CALCULATED) > 59 mL/min/; GLUCOSE 139 mg/dL (70-99); MAGNESIUM 2.3 mg/dl (1.3-2.7); POTASSIUM 4.5 MEQ/L (3.7-5.4); SAMPLE HEMOLYSIS CHECK 0; SAMPLE ICTERIC CHECK 0; SAMPLE LIPEMIA CHECK 0; SODIUM 135 MEQ/L (136-147); TOTAL BILIRUBIN 2.3 MG/DL (0.0-1.0); UREA NITROGEN (BUN) 18 mg/dL (9-23)
[2016-10-16 18:21] LABS: POINT-OF-CARE METER ID UU13113803
[2016-10-16 18:45] LABS: MCH 33.8 PG (29.0-34.0); MCV 105.5 FL (83-99); PLATELET COUNT 26 K/uL (156-360); RBC DIS.WIDTH-CV 17.3 % (11.8-14.6); RBC DIS.WIDTH-SD 58.9 % (39-53); RED BLOOD COUNT 2.37 M/uL (3.80-5.20); WHITE BLOOD COUNT 16.9 K/uL (4.1-10.2)
[2016-10-17 01:02] LABS: POINT-OF-CARE METER ID UU13113803
[2016-10-17 05:52] LABS: POINT-OF-CARE METER ID UU13113803
[2016-10-17 10:02] LABS: POINT-OF-CARE METER ID UU14174217
[2016-10-17 12:24] LABS: POINT-OF-CARE METER ID UU13113748
[2016-10-17 12:41] LABS: NRBC (%) 1.5 /100 WBC (0-0)
[2016-10-17 13:24] LABS: HEMATOCRIT 25.2 % (36.0-46.0); MCH 33.8 PG (29.0-34.0); MCHC 31.7 G/DL (30.0-36.0); MCV 106.3 FL (83-99); RBC DIS.WIDTH-SD 58.9 % (39-53); RED BLOOD COUNT 2.37 M/uL (3.80-5.20); WHITE BLOOD COUNT 16.6 K/uL (4.1-10.2)
[2016-10-17 13:48] LABS: EOSINOPHIL (%) 0 % (0-5); IMMATURE GRANULOCYTE (%) 1.7 % (0.0-0.7); IMMATURE GRANULOCYTE COUNT 0.3 K/uL; LYMPHOCYTE COUNT 0.4 K/uL (1.0-2.8); MONOCYTE (%) 2.9 % (3-12); MONOCYTE COUNT 0.5 K/uL (0-0.8); NEUTROPHIL (%) 92.7 % (45-76); NEUTROPHIL COUNT 15.4 K/uL (1.8-6.4); PLAT.SUFFICIENCY DECREASED; PLATELET COUNT 32 K/uL (156-360); USER ID CCL
[2016-10-17 15:44] LABS: ANION GAP 17 MEQ/L (2-14); CHLORIDE 105 MEQ/L (99-109); GFR ESTIMATE (CALCULATED) > 59 mL/min/; GLUCOSE 158 mg/dL (70-99); POTASSIUM 4.6 MEQ/L (3.7-5.4); SAMPLE HEMOLYSIS CHECK 0; SAMPLE ICTERIC CHECK 0; SAMPLE LIPEMIA CHECK 0; SODIUM 139 MEQ/L (136-147); UREA NITROGEN (BUN) 17 mg/dL (9-23)
[2016-10-17 16:48] LABS: UFH SRA Result Negative (Negative)
[2016-10-17 20:45] LABS: MAGNESIUM 2.4 mg/dl (1.3-2.7)
[2016-10-18 00:44] LABS: CHLORIDE 104 mEq/L (99-109); POTASSIUM 4.5 mEq/L (3.7-5.4); SODIUM 136 mEq/L (136-147)
[2016-10-18 00:46] LABS: GLUCOSE 180 mg/dL (70-99)
[2016-10-18 00:47] LABS: ANION GAP 13 MEQ/L (2-14)
[2016-10-18 00:50] LABS: GFR ESTIMATE (CALCULATED) > 59 mL/min/
[2016-10-18 00:51] LABS: UREA NITROGEN (BUN) 17 mg/dL (9-23)
[2016-10-18 00:58] LABS: POINT-OF-CARE METER ID UU13113731
[2016-10-18 05:49] LABS: NRBC (%) 1.1 /100 WBC (0-0)
[2016-10-18 06:06] LABS: EOSINOPHIL (%) 0 % (0-5); IMMATURE GRANULOCYTE (%) 0.9 % (0.0-0.7); IMMATURE GRANULOCYTE COUNT 0.2 K/uL; LYMPHOCYTE COUNT 0.3 K/uL (1.0-2.8); MONOCYTE (%) 2.8 % (3-12); MONOCYTE COUNT 0.5 K/uL (0-0.8); NEUTROPHIL (%) 94.1 % (45-76); NEUTROPHIL COUNT 15.1 K/uL (1.8-6.4)
[2016-10-18 06:13] LABS: HEMATOCRIT 24.9 % (36.0-46.0); MCH 34.2 PG (29.0-34.0); MCHC 32.5 G/DL (30.0-36.0); MCV 105.1 FL (83-99); RBC DIS.WIDTH-CV 18.7 % (11.8-14.6); RBC DIS.WIDTH-SD 58.6 % (39-53); RED BLOOD COUNT 2.37 M/uL (3.80-5.20); WHITE BLOOD COUNT 16.1 K/uL (4.1-10.2)
[2016-10-18 06:34] LABS: POINT-OF-CARE METER ID UU13113731
[2016-10-18 06:57] LABS: MAGNESIUM 2.4 mg/dl (1.3-2.7)
[2016-10-18 07:00] LABS: MEAN PLAT.VOLUME 12.9 uM^3 (9.5-12.4); PLAT.SUFFICIENCY DECREASED; PLATELET COUNT 34 K/uL (156-360); USER ID SDF
[2016-10-18 08:03] LABS: PTT 80.1 (25-32)
[2016-10-18 08:07] LABS: PROTHROMBIN TIME 69.5 (9.2-11.2)
[2016-10-18 08:08] LABS: INTER. NORMALIZED RATIO 6.4
[2016-10-18 11:56] LABS: BASE EXCESS -7.1 mEq/L (-3 to +3); BICARBONATE 19.7 mEq/L (22-26); CARBOXY HGB 2.5 % (0-5); METHEMOGLOBIN 1.6 % (0-1.5); PCO2 45 mm Hg (35-45); PO2 106 mm Hg (80-100)
[2016-10-18 11:57] LABS: COMMENTS - BLOOD GASES C+; CONTINUOUS POS AIRWAY PRESSURE 5 cm H2O; DEVICE 840; FI02 30 %; MODE SPONT; PRES. SUPPORT 5 CM/H2O; SITE ALINE; TOTAL RESP RATE 24 resp/min; pH 7.25 (7.35-7.45)
[2016-10-18 12:27] LABS: ALKALINE PHOSPHATASE 83 IU/L (3-129); DIRECT BILIRUBIN 2.2 mg/dL (0.0-0.3)
[2016-10-18 12:32] LABS: TOTAL BILIRUBIN 3.4 MG/DL (0.0-1.0)
[2016-10-18 14:09] LABS: ANION GAP 19 MEQ/L (2-14); CHLORIDE 101 MEQ/L (99-109); GFR ESTIMATE (CALCULATED) > 59 mL/min/; GLUCOSE 179 mg/dL (70-99); POTASSIUM 4.5 MEQ/L (3.7-5.4); SAMPLE HEMOLYSIS CHECK 0; SAMPLE ICTERIC CHECK 1; SAMPLE LIPEMIA CHECK 0; SODIUM 139 MEQ/L (136-147); UREA NITROGEN (BUN) 17 mg/dL (9-23)
[2016-10-18 17:53] LABS: POINT-OF-CARE METER ID UU13113731
[2016-10-18 21:14] LABS: MAGNESIUM 2.3 mg/dl (1.3-2.7)
[2016-10-19 00:56] LABS: POINT-OF-CARE METER ID UU13113731
[2016-10-19 01:08] LABS: CHLORIDE 104 mEq/L (99-109); POTASSIUM 5.1 mEq/L (3.7-5.4); SODIUM 136 mEq/L (136-147)
[2016-10-19 01:10] LABS: GLUCOSE 193 mg/dL (70-99)
[2016-10-19 01:12] LABS: ANION GAP 15 MEQ/L (2-14)
[2016-10-19 01:14] LABS: GFR ESTIMATE (CALCULATED) > 59 mL/min/
[2016-10-19 01:15] LABS: UREA NITROGEN (BUN) 17 mg/dL (9-23)
[2016-10-19 05:56] LABS: POINT-OF-CARE METER ID UU13113803
[2016-10-19 06:41] LABS: NRBC (%) 0.9 /100 WBC (0-0)
[2016-10-19 06:46] LABS: INTER. NORMALIZED RATIO 2.3; PROTHROMBIN TIME 24.2 (9.2-11.2); PTT 53.9 (25-32)
[2016-10-19 06:48] LABS: ALKALINE PHOSPHATASE 85 IU/L (3-129); ANION GAP 14 MEQ/L (2-14); CHLORIDE 101 MEQ/L (99-109); DIRECT BILIRUBIN 2.3 mg/dL (0.0-0.3); GFR ESTIMATE (CALCULATED) > 59 mL/min/; GLUCOSE 210 mg/dL (70-99); MAGNESIUM 2.4 mg/dl (1.3-2.7); POTASSIUM 4.2 MEQ/L (3.7-5.4); SAMPLE HEMOLYSIS CHECK 0; SAMPLE ICTERIC CHECK 1; SAMPLE LIPEMIA CHECK 0; SODIUM 135 MEQ/L (136-147); TOTAL BILIRUBIN 3.6 MG/DL (0.0-1.0); UREA NITROGEN (BUN) 18 mg/dL (9-23)
[2016-10-19 07:45] LABS: EOSINOPHIL (%) 0 % (0-5); HEMATOCRIT 23.9 % (36.0-46.0); IMMATURE GRANULOCYTE (%) 0.9 % (0.0-0.7); IMMATURE GRANULOCYTE COUNT 0.1 K/uL; LYMPHOCYTE COUNT 0.4 K/uL (1.0-2.8); MCH 33.5 PG (29.0-34.0); MCHC 32.2 G/DL (30.0-36.0); MCV 103.9 FL (83-99); MONOCYTE (%) 2.1 % (3-12); MONOCYTE COUNT 0.3 K/uL (0-0.8); NEUTROPHIL (%) 94.2 % (45-76); NEUTROPHIL COUNT 13.2 K/uL (1.8-6.4); RBC DIS.WIDTH-CV 19.7 % (11.8-14.6); RBC DIS.WIDTH-SD 58.4 % (39-53)
[2016-10-19 08:55] LABS: HEMATOLOGY COMMENT 1 REV; USER ID NJR
[2016-10-19 08:58] LABS: MEAN PLAT.VOLUME 13.4 uM^3 (9.5-12.4); PLATELET COUNT 43 K/uL (156-360)
[2016-10-19 12:38] LABS: POINT-OF-CARE METER ID UU13113803; POINT-OF-CARE USER ID 606021424
[2016-10-19 18:30] LABS: POINT-OF-CARE METER ID UU14162636
[2016-10-19 19:06] LABS: ANION GAP 16 MEQ/L (2-14); CHLORIDE 102 MEQ/L (99-109); GFR ESTIMATE (CALCULATED) > 59 mL/min/; GLUCOSE 218 mg/dL (70-99); MAGNESIUM 2.2 mg/dl (1.3-2.7); POTASSIUM 4.1 MEQ/L (3.7-5.4); SAMPLE HEMOLYSIS CHECK 0; SAMPLE ICTERIC CHECK 0; SAMPLE LIPEMIA CHECK 0; SODIUM 137 MEQ/L (136-147); UREA NITROGEN (BUN) 17 mg/dL (9-23)
[2016-10-20 00:50] LABS: POINT-OF-CARE METER ID UU13113803
[2016-10-20 05:58] LABS: POINT-OF-CARE METER ID UU14162636
[2016-10-20 06:06] LABS: NRBC (%) 0.6 /100 WBC (0-0)
[2016-10-20 06:36] LABS: ALKALINE PHOSPHATASE 81 IU/L (3-129); ANION GAP 13 MEQ/L (2-14); CHLORIDE 103 MEQ/L (99-109); DIRECT BILIRUBIN 1.8 mg/dL (0.0-0.3); GFR ESTIMATE (CALCULATED) > 59 mL/min/; GLUCOSE 222 mg/dL (70-99); MAGNESIUM 2.3 mg/dl (1.3-2.7); SAMPLE HEMOLYSIS CHECK 0; SAMPLE ICTERIC CHECK 1; SAMPLE LIPEMIA CHECK 0; SODIUM 136 MEQ/L (136-147); UREA NITROGEN (BUN) 19 mg/dL (9-23)
[2016-10-20 07:46] LABS: EOSINOPHIL (%) 0 % (0-5); HEMATOCRIT 23.5 % (36.0-46.0); IMMATURE GRANULOCYTE (%) 0.5 % (0.0-0.7); IMMATURE GRANULOCYTE COUNT 0.1 K/uL; LYMPHOCYTE COUNT 0.5 K/uL (1.0-2.8); MCH 33.9 PG (29.0-34.0); MCHC 32.8 G/DL (30.0-36.0); MCV 103.5 FL (83-99); MEAN PLAT.VOLUME 13.9 uM^3 (9.5-12.4); MONOCYTE (%) 2.4 % (3-12); MONOCYTE COUNT 0.3 K/uL (0-0.8); NEUTROPHIL (%) 93.5 % (45-76); NEUTROPHIL COUNT 12.1 K/uL (1.8-6.4); PLAT.SUFFICIENCY DECREASED; PLATELET COUNT 42 K/uL (156-360); RBC DIS.WIDTH-SD 55.5 % (39-53); RED BLOOD COUNT 2.27 M/uL (3.80-5.20); USER ID TLW
[2016-10-20 12:00] LABS: POINT-OF-CARE METER ID UU14174217
[2016-10-20 12:30] VITALS: BP 100/45
[2016-10-20 12:45] VITALS: BP 100/45
[2016-10-20 13:00] VITALS: BP 84/40
[2016-10-20 13:09] LABS: INTER. NORMALIZED RATIO 1.7
[2016-10-20 14:00] VITALS: BP 144/53
[2016-10-20 17:56] LABS: POINT-OF-CARE METER ID UU14174217
[2016-10-20 18:00] VITALS: BP 126/58
[2016-10-20 18:54] LABS: ANION GAP 18 MEQ/L (2-14); CHLORIDE 102 MEQ/L (99-109); GFR ESTIMATE (CALCULATED) 55 mL/min/; GLUCOSE 263 mg/dL (70-99); MAGNESIUM 2.3 mg/dl (1.3-2.7); POTASSIUM 4.1 MEQ/L (3.7-5.4); SAMPLE HEMOLYSIS CHECK 0; SAMPLE ICTERIC CHECK 0; SAMPLE LIPEMIA CHECK 0; SODIUM 137 MEQ/L (136-147); UREA NITROGEN (BUN) 28 mg/dL (9-23)
[2016-10-20 20:08] LABS: BASE EXCESS -5.7 mEq/L (-3 to +3); BICARBONATE 17.9 mEq/L (22-26); CARBOXY HGB 1.8 % (0-5); METHEMOGLOBIN 1.4 % (0-1.5)
[2016-10-20 20:09] LABS: COMMENTS - BLOOD GASES C+; DEVICE VENT; FI02 30 %; MECHANICAL RATE 18 resp/min; MODE AC; PCO2 27 mm Hg (35-45); PEEP 5 CM/H20; PO2 139 mm Hg (80-100); SITE ALINE; TIDAL VOLUME 450 ML; TOTAL RESP RATE 23 resp/min; pH 7.43 (7.35-7.45)
[2016-10-20 20:35] LABS: ANION GAP 17 MEQ/L (2-14); CHLORIDE 102 MEQ/L (99-109); SAMPLE HEMOLYSIS CHECK 0; SAMPLE ICTERIC CHECK 0; SAMPLE LIPEMIA CHECK 0; SODIUM 136 MEQ/L (136-147)
[2016-10-20 20:45] LABS: GFR ESTIMATE (CALCULATED) 50 mL/min/; GLUCOSE 267 mg/dL (70-99); UREA NITROGEN (BUN) 31 mg/dL (9-23)
[2016-10-21 00:52] LABS: POINT-OF-CARE METER ID UU14174217
[2016-10-21 05:39] LABS: NRBC (%) 0.2 /100 WBC (0-0)
[2016-10-21 06:21] LABS: EOSINOPHIL (%) 0.2 % (0-5); IMMATURE GRANULOCYTE (%) 0.8 % (0.0-0.7); IMMATURE GRANULOCYTE COUNT 0.1 K/uL; LYMPHOCYTE COUNT 0.4 K/uL (1.0-2.8); MONOCYTE COUNT 0.6 K/uL (0-0.8); NEUTROPHIL (%) 92.4 % (45-76); NEUTROPHIL COUNT 13.2 K/uL (1.8-6.4)
[2016-10-21 06:45] LABS: HEMATOCRIT 21.7 % (36.0-46.0); MCH 33.8 PG (29.0-34.0); MCHC 32.7 G/DL (30.0-36.0); MCV 103.3 FL (83-99); MEAN PLAT.VOLUME 13.4 uM^3 (9.5-12.4); PLAT.SUFFICIENCY DECREASED; PLATELET COUNT 54 K/uL (156-360); RBC DIS.WIDTH-CV 21.2 % (11.8-14.6); RBC DIS.WIDTH-SD 55.5 % (39-53); WHITE BLOOD COUNT 14.3 K/uL (4.1-10.2)
[2016-10-21 08:15] LABS: ALKALINE PHOSPHATASE 73 IU/L (3-129); ANION GAP 16 MEQ/L (2-14); CHLORIDE 103 MEQ/L (99-109); DIRECT BILIRUBIN 1.2 mg/dL (0.0-0.3); GFR ESTIMATE (CALCULATED) 36 mL/min/; GLUCOSE 297 mg/dL (70-99); MAGNESIUM 2.3 mg/dl (1.3-2.7); SAMPLE HEMOLYSIS CHECK 0; SAMPLE ICTERIC CHECK 0; SAMPLE LIPEMIA CHECK 0; SODIUM 137 MEQ/L (136-147); UREA NITROGEN (BUN) 37 mg/dL (9-23)
[2016-10-21 18:28] LABS: POINT-OF-CARE METER ID UU13113748
[2016-10-21 19:15] LABS: ANION GAP 13 MEQ/L (2-14); CHLORIDE 103 MEQ/L (99-109); GFR ESTIMATE (CALCULATED) 28 mL/min/; GLUCOSE 321 mg/dL (70-99); MAGNESIUM 2.3 mg/dl (1.3-2.7); POTASSIUM 4.1 MEQ/L (3.7-5.4); SAMPLE HEMOLYSIS CHECK 0; SAMPLE ICTERIC CHECK 0; SAMPLE LIPEMIA CHECK 0; SODIUM 137 MEQ/L (136-147); UREA NITROGEN (BUN) 42 mg/dL (9-23)
[2016-10-22 02:07] LABS: POINT-OF-CARE METER ID UU14174217
[2016-10-22 04:51] LABS: HEMATOCRIT 22.1 % (36.0-46.0); MCH 34.6 PG (29.0-34.0); MCV 104.7 FL (83-99); MEAN PLAT.VOLUME 12.2 uM^3 (9.5-12.4); PLATELET COUNT 65 K/uL (156-360); RBC DIS.WIDTH-CV 22.2 % (11.8-14.6); RBC DIS.WIDTH-SD 52.9 % (39-53); RED BLOOD COUNT 2.11 M/uL (3.80-5.20); WHITE BLOOD COUNT 14.5 K/uL (4.1-10.2)
[2016-10-22 04:58] LABS: EOSINOPHIL (%) 0 % (0-5); IMMATURE GRANULOCYTE (%) 0.5 % (0.0-0.7); IMMATURE GRANULOCYTE COUNT 0.7 K/uL; LYMPHOCYTE COUNT 0.5 K/uL (1.0-2.8); MONOCYTE (%) 5.6 % (3-12); MONOCYTE COUNT 0.8 K/uL (0-0.8); NEUTROPHIL (%) 90.5 % (45-76); NEUTROPHIL COUNT 13.2 K/uL (1.8-6.4)
[2016-10-22 05:00] LABS: CHLORIDE 105 mEq/L (99-109); POTASSIUM 4.5 mEq/L (3.7-5.4); SODIUM 139 mEq/L (136-147)
[2016-10-22 05:01] LABS: MAGNESIUM 2.3 mg/dL (1.3-2.7)
[2016-10-22 05:02] LABS: GLUCOSE 317 mg/dL (70-99)
[2016-10-22 05:03] LABS: ANION GAP 12 MEQ/L (2-14)
[2016-10-22 05:07] LABS: GFR ESTIMATE (CALCULATED) 21 mL/min/; UREA NITROGEN (BUN) 51 mg/dL (9-23)
[2016-10-22 05:32] LABS: POINT-OF-CARE METER ID UU13113803
[2016-10-22 12:36] LABS: POINT-OF-CARE METER ID UU13113803
[2016-10-22 18:14] LABS: POINT-OF-CARE METER ID UU14162636
[2016-10-22 18:33] LABS: ANION GAP 15 MEQ/L (2-14); CHLORIDE 101 MEQ/L (99-109); GFR ESTIMATE (CALCULATED) 20 mL/min/; GLUCOSE 272 mg/dL (70-99); MAGNESIUM 2.3 mg/dl (1.3-2.7); POTASSIUM 4.3 MEQ/L (3.7-5.4); SAMPLE HEMOLYSIS CHECK 0; SAMPLE ICTERIC CHECK 0; SAMPLE LIPEMIA CHECK 0; SODIUM 137 MEQ/L (136-147); UREA NITROGEN (BUN) 54 mg/dL (9-23)
[2016-10-23 00:46] LABS: POINT-OF-CARE METER ID UU13113803
[2016-10-23 06:14] LABS: ANION GAP 16 MEQ/L (2-14); CHLORIDE 102 MEQ/L (99-109); GFR ESTIMATE (CALCULATED) 17 mL/min/; GLUCOSE 275 mg/dL (70-99); MAGNESIUM 2.3 mg/dl (1.3-2.7); POTASSIUM 4.5 MEQ/L (3.7-5.4); SAMPLE HEMOLYSIS CHECK 0; SAMPLE ICTERIC CHECK 0; SAMPLE LIPEMIA CHECK 0; SODIUM 138 MEQ/L (136-147); UREA NITROGEN (BUN) 56 mg/dL (9-23)
[2016-10-23 06:30] LABS: EOSINOPHIL (%) 0.2 % (0-5); IMMATURE GRANULOCYTE (%) 0.2 % (0.0-0.7); LYMPHOCYTE COUNT 0.4 K/uL (1.0-2.8); MCH 35.6 PG (29.0-34.0); MCHC 34.5 G/DL (30.0-36.0); MCV 103.5 FL (83-99); MONOCYTE (%) 7.4 % (3-12); MONOCYTE COUNT 0.7 K/uL (0-0.8); NEUTROPHIL (%) 87.4 % (45-76); RBC DIS.WIDTH-CV 23.4 % (11.8-14.6); RBC DIS.WIDTH-SD 58.4 % (39-53); RED BLOOD COUNT 1.94 M/uL (3.80-5.20)
[2016-10-23 06:31] LABS: WHITE BLOOD COUNT 9.1 K/uL (4.1-10.2)
[2016-10-23 06:44] LABS: ANISOCYTOSIS 1+; MACROCYTES 1+; MICROCYTOSIS 1+; OVALOCYTES 1+; PLAT.SUFFICIENCY DECREASED
[2016-10-23 06:50] LABS: PLATELET COUNT 50 K/uL (156-360)
[2016-10-23 12:30] LABS: AHBS INDEX 0; HBSG INDEX 0.21; HEPATITIS B SURFACE ANTIBODY Nonreactive
[2016-10-23 12:33] LABS: POINT-OF-CARE METER ID UU13113731
[2016-10-23 17:28] VITALS: BP 132/54
[2016-10-23 17:45] VITALS: BP 125/50
[2016-10-23 18:24] VITALS: BP 126/47
[2016-10-23 18:30] LABS: POINT-OF-CARE METER ID UU13113731
[2016-10-23 18:49] LABS: ANION GAP 17 MEQ/L (2-14); CHLORIDE 103 MEQ/L (99-109); GFR ESTIMATE (CALCULATED) 17 mL/min/; GLUCOSE 296 mg/dL (70-99); MAGNESIUM 2.3 mg/dl (1.3-2.7); POTASSIUM 4.3 MEQ/L (3.7-5.4); SAMPLE HEMOLYSIS CHECK 0; SAMPLE ICTERIC CHECK 0; SAMPLE LIPEMIA CHECK 0; SODIUM 138 MEQ/L (136-147); UREA NITROGEN (BUN) 62 mg/dL (9-23)
[2016-10-23 19:25] VITALS: BP 134/48
[2016-10-23 20:23] VITALS: BP 101/74
[2016-10-23 23:43] LABS: POINT-OF-CARE METER ID UU13113731
[2016-10-24] VITALS (12 sets, daily range): BP systolic 84–126; BP diastolic 42–60
[2016-10-24 05:29] LABS: BASE EXCESS -4.2 mEq/L (-3 to +3); CARBOXY HGB 1.5 % (0-5); COMMENTS - BLOOD GASES C+; DEVICE 840; FI02 30 %; MECHANICAL RATE 8 resp/min; METHEMOGLOBIN 1.5 % (0-1.5); MODE SIMV; PCO2 38 mm Hg (35-45); PO2 98 mm Hg (80-100); SITE A-LINE; TOTAL RESP RATE 18 resp/min; pH 7.35 (7.35-7.45)
[2016-10-24 05:30] LABS: PEEP 5 CM/H20; PRES. SUPPORT 10 CM/H2O; TIDAL VOLUME 450 ML
[2016-10-24 05:33] LABS: POINT-OF-CARE METER ID UU14174217
[2016-10-24 06:12] LABS: EOSINOPHIL (%) 0.1 % (0-5); HEMATOCRIT 23.2 % (36.0-46.0); IMMATURE GRANULOCYTE (%) 0.1 % (0.0-0.7); LYMPHOCYTE COUNT 0.6 K/uL (1.0-2.8); MCH 33.6 PG (29.0-34.0); MCHC 34.1 G/DL (30.0-36.0); MONOCYTE (%) 6.3 % (3-12); MONOCYTE COUNT 0.5 K/uL (0-0.8); NEUTROPHIL (%) 85.2 % (45-76); NEUTROPHIL COUNT 6.1 K/uL (1.8-6.4); NRBC (%) 0.3 /100 WBC (0-0); PLATELET COUNT 53 K/uL (156-360); RBC DIS.WIDTH-CV 22.6 % (11.8-14.6); RBC DIS.WIDTH-SD 55.1 % (39-53); WHITE BLOOD COUNT 7.2 K/uL (4.1-10.2)
[2016-10-24 06:19] LABS: ALKALINE PHOSPHATASE 81 IU/L (3-129); ANION GAP 14 MEQ/L (2-14); CHLORIDE 102 MEQ/L (99-109); GFR ESTIMATE (CALCULATED) 15 mL/min/; GLUCOSE 240 mg/dL (70-99); MAGNESIUM 2.3 mg/dl (1.3-2.7); POTASSIUM 4.4 MEQ/L (3.7-5.4); SAMPLE HEMOLYSIS CHECK 0; SAMPLE ICTERIC CHECK 0; SAMPLE LIPEMIA CHECK 0; SODIUM 137 MEQ/L (136-147); UREA NITROGEN (BUN) 65 mg/dL (9-23)
[2016-10-24 06:22] LABS: MCV 98.7 FL (83-99); RED BLOOD COUNT 2.35 M/uL (3.80-5.20)
[2016-10-24 06:23] LABS: DIRECT BILIRUBIN 0.7 mg/dL (0.0-0.3); INTER. NORMALIZED RATIO 1.3; PROTHROMBIN TIME 13.4 (9.2-11.2); PTT 36.7 (25-32); TOTAL BILIRUBIN 1.2 MG/DL (0.0-1.0)
[2016-10-24 07:07] LABS: PLAT.SUFFICIENCY DECREASED; USER ID SDF
[2016-10-24 17:42] LABS: POINT-OF-CARE METER ID UU14174217
[2016-10-25] VITALS (18 sets, daily range): BP systolic 86–115; BP diastolic 44–61
[2016-10-25 00:24] LABS: POINT-OF-CARE METER ID UU14174217; POINT-OF-CARE USER ID LABHNS84
[2016-10-25 02:50] LABS: CHLORIDE 106 mEq/L (99-109); POTASSIUM 3.8 mEq/L (3.7-5.4); SODIUM 140 mEq/L (136-147)
[2016-10-25 02:52] LABS: GLUCOSE 182 mg/dL (70-99); INTER. NORMALIZED RATIO 1.4; MAGNESIUM 1.9 mg/dL (1.3-2.7); PROTHROMBIN TIME 14.2 (9.2-11.2); PTT 37.1 (25-32)
[2016-10-25 02:53] LABS: ANION GAP 15 MEQ/L (2-14)
[2016-10-25 02:56] LABS: GFR ESTIMATE (CALCULATED) 18 mL/min/
[2016-10-25 02:57] LABS: UREA NITROGEN (BUN) 48 mg/dL (9-23)
[2016-10-25 03:41] LABS: HEMATOCRIT 27.3 % (36.0-46.0); MCH 33.6 PG (29.0-34.0); MCHC 34.4 G/DL (30.0-36.0); MCV 97.5 FL (83-99); RBC DIS.WIDTH-CV 23.5 % (11.8-14.6); RBC DIS.WIDTH-SD 53.5 % (39-53); WHITE BLOOD COUNT 6.4 K/uL (4.1-10.2)
[2016-10-25 03:43] LABS: PLATELET COUNT ND K/uL (156-360)
[2016-10-25 05:40] LABS: POINT-OF-CARE METER ID UU13113731
[2016-10-25 13:02] LABS: POINT-OF-CARE METER ID UU13113731
[2016-10-25 18:21] LABS: POINT-OF-CARE METER ID UU13113731
[2016-10-26] VITALS (14 sets, daily range): BP systolic 86–137; BP diastolic 44–64
[2016-10-26 00:01] LABS: POINT-OF-CARE METER ID UU14174217
[2016-10-26 08:00] LABS: INTER. NORMALIZED RATIO 1.3; PROTHROMBIN TIME 13.7 (9.2-11.2)
[2016-10-26 10:30] LABS: EOSINOPHIL COUNT 0.1 K/uL (0-0.3); HEMATOCRIT 24.5 % (36.0-46.0); IMMATURE GRANULOCYTE (%) 0.2 % (0.0-0.7); LYMPHOCYTE COUNT 0.3 K/uL (1.0-2.8); MCH 32.2 PG (29.0-34.0); MCHC 34.3 G/DL (30.0-36.0); MCV 93.9 FL (83-99); MONOCYTE (%) 11.9 % (3-12); MONOCYTE COUNT 0.7 K/uL (0-0.8); NEUTROPHIL COUNT 4.9 K/uL (1.8-6.4); RBC DIS.WIDTH-CV 22.3 % (11.8-14.6); RBC DIS.WIDTH-SD 59.2 % (39-53); RED BLOOD COUNT 2.61 M/uL (3.80-5.20)
[2016-10-26 10:31] LABS: HEMATOCRIT 24.9 % (36.0-46.0); MCH 32.2 PG (29.0-34.0); MCHC 34.1 G/DL (30.0-36.0); MCV 94.3 FL (83-99); RBC DIS.WIDTH-CV 22.3 % (11.8-14.6); RBC DIS.WIDTH-SD 58.7 % (39-53); RED BLOOD COUNT 2.64 M/uL (3.80-5.20); WHITE BLOOD COUNT 5.6 K/uL (4.1-10.2)
[2016-10-26 10:36] LABS: ANION GAP 13 MEQ/L (2-14); CHLORIDE 104 MEQ/L (99-109); POTASSIUM 3.8 MEQ/L (3.7-5.4); SAMPLE HEMOLYSIS CHECK 0; SAMPLE ICTERIC CHECK 0; SAMPLE LIPEMIA CHECK 0; SODIUM 140 MEQ/L (136-147); TOTAL BILIRUBIN 1.1 MG/DL (0.0-1.0)
[2016-10-26 10:37] LABS: ANION GAP 16 MEQ/L (2-14); CHLORIDE 101 MEQ/L (99-109); POTASSIUM 3.8 MEQ/L (3.7-5.4); SAMPLE HEMOLYSIS CHECK 0; SAMPLE ICTERIC CHECK 0; SAMPLE LIPEMIA CHECK 0; SODIUM 140 MEQ/L (136-147)
[2016-10-26 10:42] LABS: ALKALINE PHOSPHATASE 87 IU/L (3-129); GFR ESTIMATE (CALCULATED) 13 mL/min/; GLUCOSE 174 mg/dL (70-99); UREA NITROGEN (BUN) 63 mg/dL (9-23)
[2016-10-26 10:45] LABS: GFR ESTIMATE (CALCULATED) 13 mL/min/
[2016-10-26 10:53] LABS: MEAN PLAT.VOLUME 14.1 uM^3 (9.5-12.4); PLAT.SUFFICIENCY DECREASED; PLATELET COUNT 64 K/uL (156-360); USER ID TLW
[2016-10-26 10:55] LABS: MEAN PLAT.VOLUME 13.6 uM^3 (9.5-12.4); PLATELET COUNT 64 K/uL (156-360)
[2016-10-26 17:54] LABS: POINT-OF-CARE METER ID UU14162636
[2016-10-27] VITALS: BP 93/51
[2016-10-27 01:41] LABS: INTER. NORMALIZED RATIO 1.4; PROTHROMBIN TIME 14.7 (9.2-11.2)
[2016-10-27 02:00] VITALS: BP 107/49
[2016-10-27 05:00] VITALS: BP 99/57
[2016-10-27 06:06] LABS: POINT-OF-CARE METER ID UU13113748
[2016-10-27 06:18] LABS: ANION GAP 11 MEQ/L (2-14); CHLORIDE 101 MEQ/L (99-109); GLUCOSE 164 mg/dL (70-99); POTASSIUM 3.9 MEQ/L (3.7-5.4); SAMPLE HEMOLYSIS CHECK 0; SAMPLE ICTERIC CHECK 0; SAMPLE LIPEMIA CHECK 0; SODIUM 137 MEQ/L (136-147)
[2016-10-27 06:19] LABS: GFR ESTIMATE (CALCULATED) 24 mL/min/; UREA NITROGEN (BUN) 28 mg/dL (9-23)
[2016-10-27 07:00] VITALS: BP 109/57
[2016-10-27 07:11] LABS: HEMATOCRIT 24.5 % (36.0-46.0); MCH 33.1 PG (29.0-34.0); MCHC 35.1 G/DL (30.0-36.0); MCV 94.2 FL (83-99); RBC DIS.WIDTH-CV 22.6 % (11.8-14.6); RBC DIS.WIDTH-SD 69.6 % (39-53); WHITE BLOOD COUNT 5.2 K/uL (4.1-10.2)
[2016-10-27 07:58] LABS: PLATELET COUNT 68 K/uL (156-360)
[2016-10-27] MEDS ORDERED: DUONEB 2.5-0.5 M3 ML AEROSOL (10:26)
[2016-10-27] MEDS ORDERED: NOVOLOG PE100 UNITS/ SC (10:27)
[2016-10-27 11:00] VITALS: BP 98/66
[2016-10-27 13:00] VITALS: BP 128/60
[2016-11-06] MEDS ORDERED: SENEXON8.8 MG/5 M GT (20:59)
[2016-11-06] MEDS ORDERED: OMEPRAZOLE40 M1 GT (21:10)
[2016-11-06] MEDS ORDERED: PERCOCET 5/31 TABLET GT (21:11)
[2016-11-06] MEDS ORDERED: SILACE50 MG/5 ML GT (21:11)
[2016-11-06] MEDS ORDERED: DULCOLAX10 MG PR (21:12)
[2016-11-06] MEDS ORDERED: GAVILAX17 GM GT (21:12)
[2016-11-06] MEDS ORDERED: REGLAN10 MG/10 M GT (21:14)
[2016-11-06] MEDS ORDERED: ULTRAM50 MG GT (21:15)
[2016-11-06] MEDS ORDERED: GENTEAL TEARS 015 M1 BOTH EYES (21:16)
[2016-11-06] MEDS ORDERED: NEPHRO-VITE RX1 EACH GT (21:18)
[2016-11-06] MEDS ORDERED: NYSTOP60 GM TP (21:20)
[2016-11-06] MEDS ORDERED: HYDROPHOR228 GM TP (21:20)
[2016-11-06] MEDS ORDERED: PERIDEX1 ML MM (21:22)
[2016-11-06] MEDS ORDERED: DUONEB 2.5-0.5 M3 ML AEROSOL (21:23)
== END 2016-10-27 13:25 | disposition designated cancer center or children's hospital (05) | DRG 4 ==
LOC: EME 15:21 → EDOF 17:10 → 4WEST 17:10
PROVIDERS: Emergency Medicine; Internal Medicine; Internal Medicine Cardiovascular Disease; Internal Medicine Critical Care Medicine; Internal Medicine Nephrology; Internal Medicine Pulmonary Disease
DX: T82.7XXA Infection and inflammatory reaction due to other cardiac and vascular devices, implants and grafts, initial encounter (principal); A40.3 Sepsis due to Streptococcus pneumoniae; R65.21 Severe sepsis with septic shock; J96.01 Acute respiratory failure with hypoxia; K72.00 Acute and subacute hepatic failure without coma; N18.6 End stage renal disease; I13.2 Hypertensive heart and chronic kidney disease with heart failure and with stage 5 chronic kidney disease, or end stage renal disease; E87.2 Acidosis; E87.1 Hypo-osmolality and hyponatremia; D68.4 Acquired coagulation factor deficiency; I24.8 Other forms of acute ischemic heart disease; I25.810 Atherosclerosis of coronary artery bypass graft(s) without angina pectoris; I50.22 Chronic systolic (congestive) heart failure; J10.01 Influenza due to other identified influenza virus with the same other identified influenza virus pneumonia; J13 Pneumonia due to Streptococcus pneumoniae; D75.82 Heparin induced thrombocytopenia (HIT); I25.5 Ischemic cardiomyopathy; L89.150 Pressure ulcer of sacral region, unstageable; I35.0 Nonrheumatic aortic (valve) stenosis; E11.22 Type 2 diabetes mellitus with diabetic chronic kidney disease; E11.649 Type 2 diabetes mellitus with hypoglycemia without coma; E78.5 Hyperlipidemia, unspecified; D63.1 Anemia in chronic kidney disease; I48.2 Chronic atrial fibrillation; I67.9 Cerebrovascular disease, unspecified; I73.9 Peripheral vascular disease, unspecified; E03.9 Hypothyroidism, unspecified; E66.01 Morbid (severe) obesity due to excess calories; Y84.8 Other medical procedures as the cause of abnormal reaction of the patient, or of later complication, without mention of misadventure at the time of the procedure; Z66 Do not resuscitate; Z99.2 Dependence on renal dialysis; I25.2 Old myocardial infarction; Z95.5 Presence of coronary angioplasty implant and graft; Z68.31 Body mass index [BMI] 31.0-31.9, adult; Z89.611 Acquired absence of right leg above knee; Z89.612 Acquired absence of left leg above knee; I80.8 Phlebitis and thrombophlebitis of other sites; K56.7 Ileus, unspecified; L22 Diaper dermatitis; R32 Unspecified urinary incontinence
CPT/HCPCS: 36600; 71010; 74000; 74177; 80047; 80048; 80048 91; 80053; 80069; 80074; 80076; 80162; 80170; 80202; 81003; 82040; 82140; 82330; 82533 91; 82550; 82553; 82803; 82948; 83605; 83690; 83735; 83880; 84100; 84439; 84443; 84484; 85025; 85025 91; 85027; 85384; 85610; 85730; 86022 90; 86308; 86706; 86850; 86900; 86901; 86920; 87040; 87070; 87077; 87106; 87147; 87181; 87186; 87205; 87340; 87502; 87641; 87801; 93005; 93306; 93970; 94002; 94003; 94640; 94640 76; 94799; 97530 GO; 97530 GP; 99281; 99285; C1752; C9113; C9121; G0480; J0132; J0171; J0610; J0696; J0834; J0883; J1160; J1250; J1580; J1644; J1720; J1815; J2250; J2260; J2405; J2543; J2765; J2997; J3370; J3475; J7030; J7042; J7050; J7060; J7070; P9016; P9045; S0028

== ENCOUNTER 2016-10-28 18:36 | Emergency (ER) | payer BC, OTHER ==
[~2016-10-28] VITALS: Ht 167.6 cm; Wt 97.0 kg
[~2016-10-28 18:36] MED LIST changes: +CRESTOR20 MG GT; +DUONEB 2.5-0.5 M3 ML AEROSOL; +LIDOPRIL 2.5%-1 EACH TP; +MIDODRINE HCL5 MG GT; +TRADJENTA5 MG PO; +TRAMADOL HCL50 MG PO; +ZOFRAN4 MG PO
[2016-10-28 19:40] LABS: CHLORIDE 105 mEq/L (99-109); POTASSIUM 4.4 mEq/L (3.7-5.4); SODIUM 138 mEq/L (136-147)
[2016-10-28 19:41] LABS: HEMATOCRIT 25.8 % (36.0-46.0); MCHC 34.1 G/DL (30.0-36.0); MCV 96.6 FL (83-99); RBC DIS.WIDTH-CV 23.2 % (11.8-14.6); RBC DIS.WIDTH-SD 69.8 % (39-53); RED BLOOD COUNT 2.67 M/uL (3.80-5.20); WHITE BLOOD COUNT 5.3 K/uL (4.1-10.2)
[2016-10-28 19:42] LABS: GLUCOSE 166 mg/dL (70-99)
[2016-10-28 19:43] LABS: ANION GAP 13 MEQ/L (2-14)
[2016-10-28 19:44] LABS: TOTAL BILIRUBIN 1.1 mg/dL (0.0-1.0)
[2016-10-28 19:46] LABS: ALKALINE PHOSPHATASE 102 IU/L (3-129); GFR ESTIMATE (CALCULATED) 21 mL/min/
[2016-10-28 19:47] LABS: UREA NITROGEN (BUN) 25 mg/dL (9-23)
[2016-10-28 19:54] LABS: QUANTITATIVE HCG < 4.0 MIU/ML
[2016-10-28 20:40] LABS: PLATELET COUNT 59 K/uL (156-360)
[2016-10-28 22:34] VITALS: BP 121/75
[2016-11-06] MEDS ORDERED: SENEXON8.8 MG/5 M GT (20:59)
[2016-11-06] MEDS ORDERED: OMEPRAZOLE40 M1 GT (21:10)
[2016-11-06] MEDS ORDERED: PERCOCET 5/31 TABLET GT (21:11)
[2016-11-06] MEDS ORDERED: SILACE50 MG/5 ML GT (21:11)
[2016-11-06] MEDS ORDERED: GAVILAX17 GM GT (21:12)
[2016-11-06] MEDS ORDERED: DULCOLAX10 MG PR (21:12)
[2016-11-06] MEDS ORDERED: REGLAN10 MG/10 M GT (21:14)
[2016-11-06] MEDS ORDERED: ULTRAM50 MG GT (21:15)
[2016-11-06] MEDS ORDERED: GENTEAL TEARS 015 M1 BOTH EYES (21:16)
[2016-11-06] MEDS ORDERED: NEPHRO-VITE RX1 EACH GT (21:18)
[2016-11-06] MEDS ORDERED: NYSTOP60 GM TP (21:20)
[2016-11-06] MEDS ORDERED: HYDROPHOR228 GM TP (21:20)
[2016-11-06] MEDS ORDERED: PERIDEX1 ML MM (21:22)
[2016-11-06] MEDS ORDERED: DUONEB 2.5-0.5 M3 ML AEROSOL (21:23)
== END 2016-10-28 23:28 | disposition designated cancer center or children's hospital (05) ==
LOC: EME 18:36
PROVIDERS: Emergency Medicine
DX: S39.91XA Unspecified injury of abdomen, initial encounter (principal); R10.9 Unspecified abdominal pain; N18.9 Chronic kidney disease, unspecified; D64.9 Anemia, unspecified; E78.5 Hyperlipidemia, unspecified; E11.9 Type 2 diabetes mellitus without complications; I10 Essential (primary) hypertension; I25.2 Old myocardial infarction; Z95.1 Presence of aortocoronary bypass graft; Z86.73 Personal history of transient ischemic attack (TIA), and cerebral infarction without residual deficits; Z88.2 Allergy status to sulfonamides; Z88.6 Allergy status to analgesic agent; Z98.890 Other specified postprocedural states
CPT/HCPCS: 74176; 80053; 81003; 84702; 85027; 94002; 94799; 99281; 99285

== ENCOUNTER 2016-10-31 09:43 | Emergency (ER) | payer BC, OTHER ==
[~2016-10-31] VITALS: Ht 172.7 cm; Wt 99.8 kg
[2016-10-31 13:55] LABS: CHLORIDE 95 mEq/L (99-109); POTASSIUM 3.8 mEq/L (3.7-5.4); SODIUM 132 mEq/L (136-147)
[2016-10-31 13:57] LABS: GLUCOSE 163 mg/dL (70-99)
[2016-10-31 13:58] LABS: ANION GAP 10 MEQ/L (2-14)
[2016-10-31 14:01] LABS: GFR ESTIMATE (CALCULATED) 24 mL/min/
[2016-10-31 14:02] LABS: UREA NITROGEN (BUN) 19 mg/dL (9-23)
[2016-10-31 15:00] VITALS: BP 133/44
[2016-11-06] MEDS ORDERED: SENEXON8.8 MG/5 M GT (20:59)
[2016-11-06] MEDS ORDERED: OMEPRAZOLE40 M1 GT (21:10)
[2016-11-06] MEDS ORDERED: SILACE50 MG/5 ML GT (21:11)
[2016-11-06] MEDS ORDERED: PERCOCET 5/31 TABLET GT (21:11)
[2016-11-06] MEDS ORDERED: GAVILAX17 GM GT (21:12)
[2016-11-06] MEDS ORDERED: DULCOLAX10 MG PR (21:12)
[2016-11-06] MEDS ORDERED: REGLAN10 MG/10 M GT (21:14)
[2016-11-06] MEDS ORDERED: ULTRAM50 MG GT (21:15)
[2016-11-06] MEDS ORDERED: GENTEAL TEARS 015 M1 BOTH EYES (21:16)
[2016-11-06] MEDS ORDERED: NEPHRO-VITE RX1 EACH GT (21:18)
[2016-11-06] MEDS ORDERED: NYSTOP60 GM TP (21:20)
[2016-11-06] MEDS ORDERED: HYDROPHOR228 GM TP (21:20)
[2016-11-06] MEDS ORDERED: PERIDEX1 ML MM (21:22)
[2016-11-06] MEDS ORDERED: DUONEB 2.5-0.5 M3 ML AEROSOL (21:23)
== END 2016-10-31 15:29 ==
LOC: EME → EDBD 09:43 → EME 09:43
PROVIDERS: Emergency Medicine
DX: J95.01 Hemorrhage from tracheostomy stoma (principal); E87.0 Hyperosmolality and hypernatremia; I10 Essential (primary) hypertension; E78.5 Hyperlipidemia, unspecified; Z95.1 Presence of aortocoronary bypass graft; G89.29 Other chronic pain; Z79.891 Long term (current) use of opiate analgesic; E11.9 Type 2 diabetes mellitus without complications; Z79.4 Long term (current) use of insulin
CPT/HCPCS: 80048; 94002; 99281; 99285